=== PATIENT | male | born 1990 | race American Indian/Alaskan Native ===

== ENCOUNTER 2020-12-08 03:12 | Emergency (ER) | payer MEDICAID ==
[2020-12-08] MEDS ORDERED: Ketorolac 30 MG/ML SDV IM ONE (03:13)
[2020-12-08 03:18] VITALS: BP 145/68; PULSE 93
--- NOTE | 2020-12-08 03:19 | EDM.PDOC ---
ED HPI GENERAL MEDICAL PROBLEM - General Chief Complaint: Lower Extremity Injury/Pain Stated Complaint: INJURED LEFT FOOT Time Seen by Provider: 12/08/20 03:14 Source of Information: Reports: Patient, EMS History Limitations: Reports: No Limitations - History of Present Illness INITIAL COMMENTS - FREE TEXT/NARRATIVE: 30 yo NA intoxicated male presents via EMS with a L foot injury he suffered when he jumped off a dock tonight. No other injuries. Pain is to the dorsum of that foot. No tx prior to arrival. 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 (see below) (none) - Related Data Allergies Allergy/AdvReac Type Severity Reaction Status Date / Time amoxicillin [Amoxicillin] Allergy Hives Verified 12/08/20 03:27 Penicillins Allergy Hives Verified 12/08/20 03:27 Home Meds: Home Meds NK [No Known Home Meds] 12/08/20 [History] Past Medical History - Past Health History Medical/Surgical History: Denies Medical/Surgical History Cardiovascular History: Reports: Hypertension Dermatologic History: Reports: Eczema, Other (See Below) (wound infection) - Infectious Disease History Infectious Disease History: Reports: Chicken Pox Social & Family History - Family History Family Medical History: No Pertinent Family History - Caffeine Use Caffeine Use: Reports: Coffee Review of Systems - Review of Systems Review Of Systems: See Below Constitutional: Reports: No Symptoms Musculoskeletal: Reports: Foot Pain (Left) Skin: Reports: No Symptoms Neurological: Reports: No Symptoms ED EXAM, GENERAL - Physical Exam Exam: See Below Exam Limited By: Intoxication General Appearance: Alert, WD/WN, No Apparent Distress Extremities: Limited Range of Motion (due to pain), Other (visible lump to the dorsum of the L foot). No: Non-Tender (tender dorsum of L foot), Increased Warmth Neurological: Alert, Oriented, CN II-XII Intact, Normal Cognition, No Motor/Sensory Deficits Psychiatric: Normal Affect, Normal Mood Skin Exam: Warm, Dry, Intact, Normal Color, No Rash ED TRAUMA EXTREMITY PROCEDURES - Splinting Left Upper Extremity Pre-Procedure NV Status: Normal Post-Procedure NV Status: Normal Splint Material: Other (OrthoGlass) Splint Design: Posterior Applied & Form Fitted By: Provider Provider Post-Splint Application NV Check: NV Status Normal, Good Position Complications: No Course - Vital Signs Last Recorded V/S: Last Vital Signs Temp 36.7 C 12/08/20 03:27 Pulse 93 12/08/20 03:27 Resp 18 12/08/20 03:27 BP 145/68 H 12/08/20 03:27 Pulse Ox 99 12/08/20 03:27 - Orders/Labs/Meds Orders: Active Orders 24 hr Category Date Time Status Foot Comp Min 3V Lt [CR] Stat Exams 12/08/20 03:13 Taken Meds: Medications Discontinued Medications Generic Name Dose Route Start Last Admin Trade Name Queenie PRN Reason Stop Dose Admin Acetaminophen 1,000 mg 12/08/20 03:52 12/08/20 03:56 Acetaminophen 500 Mg Tab PO 12/08/20 03:53 1,000 mg ONETIME ONE Administration Ketorolac Tromethamine 30 mg 12/08/20 03:13 12/08/20 03:24 Ketorolac 30 Mg/Ml Sdv IM 12/08/20 03:14 30 mg ONETIME ONE Administration - Radiology Interpretation Free Text/Narrative:: L foot X-ray-no acute fx seen CT foot- Impression: Multiple nondisplaced fractures of the tarsal bones without any sign of dislocation of the intertarsal articulations. Acute, nondisplaced, longitudinal fracture of the medial cuboid. Acute, nondisplaced fractures of the bases of the 2nd through 4th metatarsals. Acute, nondisplaced avulsion fracture of the distal lateral cuneiform adjacent to the 3rd TMT joint. Please note that all CT scans at this facility use dose modulation, iterative reconstruction, and/or weight-based dosing when appropriate to reduce radiation dose to as low as reasonably achievable. Dictated by Arcadio Uribe MD @ 12/08/2020 6:06:[address] Results Date: 12/08/20 CT Results Time: 06:10 Departure - Departure Time of Disposition: 06:45 Disposition: Home, Self-Care 01 Condition: Fair Clinical Impression: Fracture of left foot Qualifiers: Encounter type: initial encounter Fracture type: closed Qualified Code(s): S92.902A - Unspecified fracture of left foot, initial encounter for closed fracture - Discharge Information *PRESCRIPTION DRUG MONITORING PROGRAM REVIEWED*: Not Applicable *COPY OF PRESCRIPTION DRUG MONITORING REPORT IN PATIENT GABBIE: Not Applicable Instructions: Crutch Use, Adult, [id number] Referrals: PCP,Isela [Primary Care Provider] - Forms: ED Department Discharge Additional Instructions: Keep your foot elevated above your heart as much as possible. Wear your splint at all times. Crutch walking and no weight bearing on your left foot. Take your disc to your orthopedic appt that you will need to make for follow up. Your family doctor if you have one may be able to assist you in getting an orthopedic appt. Take Aleve 2 every 8 hrs with food for pain relief. Add acetaminophen up to 1000 mg every 6 hrs for added pain relief. Sepsis Event Note (ED) - Focused Exam Vital Signs: Vital Signs Temp Pulse Resp BP Pulse Ox 12/08/20 03:27 36.7 C 93 18 145/68 H 99 12/08/20 03:14 36.7 C 93 18 145/68 H 99 - My Orders Last 24 Hours: My Active Orders 12/08/20 03:13 Foot Comp Min 3V Lt [CR] Stat - Assessment/Plan Last 24 Hours: My Active Orders 12/08/20 03:13 Foot Comp Min 3V Lt [CR] Stat
[2020-12-08] MEDS ORDERED: Acetaminophen 500 MG Tab PO ONE (03:52)
--- NOTE | 2020-12-08 06:07 | CRLCT ---
For Patients: As a result of the Century Cures Act, medical imaging exams and procedure reports are released immediately into your electronic medical record. You may view this report before your referring provider. If you have questions, please contact your health care provider. Indication: Pain and swelling. Jumped off a dock and hyperflexed foot. Technique: Spiral CT examination of the left ankle is performed without contrast enhancement to obtain 1 millimeter thick sagittal, axial, coronal sections. Please note that all CT scans at this facility use dose modulation, iterative reconstruction, and/or weight-based dosing when appropriate to reduce radiation dose to as low as reasonably achievable. Comparison: None available Findings: There is an acute, nondisplaced, longitudinal fracture of the medial aspect of the cuboid extending from the anterior to the posterior articular surface. There is an acute, nondisplaced, longitudinal fracture of the medial aspect of the base of the 4th metatarsal with approximately 1 millimeter of medial displacement of the minor fracture fragment. There is a tiny, nondisplaced fracture of the medial aspect of the base of the 3rd metatarsal, associated with a tiny acute, nondisplaced avulsion fracture of the distal lateral cuneiform adjacent to the 3rd TMT joint. There is a tiny avulsion fracture arising from the dorsal aspect of the base of the 2nd metatarsal laterally. There is no sign of dislocation of the foot or ankle. The ankle mortise and the subtalar joint are intact. There is no sign of any radiopaque foreign body or gas in the soft tissues. Impression: Multiple nondisplaced fractures of the tarsal bones without any sign of dislocation of the intertarsal articulations. Acute, nondisplaced, longitudinal fracture of the medial cuboid. Acute, nondisplaced fractures of the bases of the 2nd through 4th metatarsals. Acute, nondisplaced avulsion fracture of the distal lateral cuneiform adjacent to the 3rd TMT joint. Please note that all CT scans at this facility use dose modulation, iterative reconstruction, and/or weight-based dosing when appropriate to reduce radiation dose to as low as reasonably achievable. Dictated by Arcadio Uribe MD @ 12/08/2020 6:06:[address] Arcadio Uribe @ Dec 08 2020 6:06AM
--- NOTE | 2020-12-09 10:31 | CR ---
Foot Comp Min 3V Lt CLINICAL HISTORY: Injury FINDINGS: There is a moderately short first metatarsal. This may be congenital. There is an oblique linear lucency near the diaphyseal metaphyseal margin distally. Hairline fracture is not excluded IMPRESSION: Congenitally short first metatarsal Oblique linear lucency in the distal first metatarsal. Hairline fracture is not excluded. Clinical correlation is necessary.
== END 2020-12-08 06:51 | disposition home or self-care (01) ==
LOC: JP.ED 03:12
DX: S92.325A Nondisplaced fracture of second metatarsal bone, left foot, initial encounter for closed fracture (principal); S92.335A Nondisplaced fracture of third metatarsal bone, left foot, initial encounter for closed fracture; S92.345A Nondisplaced fracture of fourth metatarsal bone, left foot, initial encounter for closed fracture; I10 Essential (primary) hypertension; Z88.0 Allergy status to penicillin; W17.89XA Other fall from one level to another, initial encounter; Y93.39 Activity, other involving climbing, rappelling and jumping off
CPT/HCPCS: 29515; 73630; 73700; 96372; 99285; A9270; J1885